=== PATIENT | male | born 1995 | race Two or more races ===

== ENCOUNTER 2018-01-02 16:45 | Emergency (ER) | payer OTHER ==
[~2018-01-02] VITALS: Ht 177.8 cm; Wt 81.6 kg
[2018-01-02] MEDS ORDERED: LORAZEPAM 0.5 MG TABLET PO ONE (17:15)
--- NOTE | 2018-01-02 17:27 | NUR ---
Patient discharged to home in stable conditon. Written and verbal after care instructions given. Patient verbalizes understanding of instructions.PT WALKS IN STEADY GAIT. PT NOT DRIVING.
[2018-01-02] MEDS ORDERED: LORAZEPAM 1 MG TABLET ONE (17:39)
== END 2018-01-02 17:30 | disposition home or self-care (01) ==
LOC: ER 16:45
DX: F41.9 Anxiety disorder, unspecified (principal); Z88.2 Allergy status to sulfonamides
CPT/HCPCS: A4663